=== PATIENT | female | born 1995 | race Two or more races ===

== ENCOUNTER 2020-06-24 13:27 | Emergency (ER) | payer SELFPAY ==
[2020-06-24 14:28] LABS: BLOOD UREA NITROGEN,BUN 8 mg/dL (7.0-18.0); CARBON DIOXIDE,CO2 23.5 mmol/L (21.0-32.0); CHLORIDE,CL 98 mmol/L (98-107); GLUCOSE RANDOM 138 mg/dL (74-106); POTASSIUM,K 3.6 mmol/L (3.5-5.1); SODIUM,NA 132 mmol/L (136-145)
[2020-06-24] MEDS ORDERED: cefTRIAXone 1 GM in Premix Bag 1 BAG IV ONE (14:29)
[2020-06-24] MEDS ORDERED: Sodium Chloride 0.9% 1,000 ML IV ONE (14:29)
--- NOTE | 2020-06-24 14:48 | EDM.PDOC ---
ED HPI GENERAL MEDICAL PROBLEM - General Chief Complaint: Abdominal Pain Stated Complaint: GALLBLADDER COMPLICATIONS Time Seen by Provider: 06/24/20 13:32 Source of Information: Reports: Patient History Limitations: Reports: No Limitations - History of Present Illness INITIAL COMMENTS - FREE TEXT/NARRATIVE: Presents reporting a 3-day history of right upper quadrant pain with in termittent nausea. She vomited once yesterday after eating oatmeal but has been eating and drinking fine since. She denies dysuria, diarrhea, ; she is not sexually active and not on control. Was seen at the [facility] on 06/23/2020. There, the radiologist appreciated some sludge within the gallbladder as well as a positive ultrasonic Larson sign on US. 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 WBCs were 13.7, sodium 132, potassium 3.9, alk phos 47, ALT 17, AST 13. Amylase 23, lipase 50. She was started on metronidazole 500 and Cipro 500 p.o. twice daily. The patient states she has taken 3 doses of each. She states she has been without nausea as long as she eats fresh fruits and vegetables and chicken broth. Her pain is now "bearly there". She states the only reason she came in is because she had a fever of 101 this morning although now it is 100.8 taking ibuprofen just prior to arrival. Patient states the only reason she came is because she was told that if she ran a fever she was come to the emergency room and get IV fluids and IV antibiotics. She request no other lab work will be done here however did except a repeat CBC at my urging.. Right Abdomen Pain Score (Numeric/FACES): 6 - Related Data Allergies Allergy/AdvReac Type Severity Reaction Status Date / Time No Known Allergies Allergy Verified 06/24/20 13:44 Home Meds: Home Meds Ciprofloxacin [Ciprofloxacin HCl] 500 mg PO DAILY 06/24/20 [History] metroNIDAZOLE [Flagyl] 500 mg PO BID 06/24/20 [History] Past Medical History - Past Health History Medical/Surgical History: Denies Medical/Surgical History Gastrointestinal History: Reports: Cholelithiasis - Infectious Disease History Infectious Disease History: Reports: None Social & Family History - Caffeine Use Caffeine Use: Reports: Coffee - Recreational Drug Use Recreational Drug Use: No ED ROS GENERAL - Review of Systems Review Of Systems: Comprehensive ROS is negative, except as noted in HPI. ED EXAM, GI/ABD - Physical Exam Exam: See Below Exam Limited By: No Limitations General Appearance: Alert, No Apparent Distress Ears: Normal External Exam Nose: Normal Inspection Throat/Mouth: Normal Inspection Head: Atraumatic, Normocephalic Neck: Normal Inspection Respiratory/Chest: No Respiratory Distress, Lungs Clear, Normal Breath Sounds Cardiovascular: Normal Peripheral Pulses, Regular Rate, Rhythm GI/Abdominal Exam: Normal Bowel Sounds, Soft, No Distention, Other (slight tenderness RUQ) Rectal (Female) Exam: Normal Exam Back Exam: Normal Inspection Extremities: Normal Inspection, Normal Range of Motion Neurological: Alert, Oriented Psychiatric: Normal Affect, Normal Mood Skin Exam: Warm, Dry, Intact, Normal Color, No Rash Lymphatic: No Adenopathy Course - Vital Signs Last Recorded V/S: Last Vital Signs Temp 38.2 C H 06/24/20 13:45 Pulse 88 06/24/20 14:57 Resp 16 06/24/20 14:57 BP 122/70 06/24/20 14:57 Pulse Ox 99 06/24/20 14:57 - Orders/Labs/Meds Labs: Laboratory Tests 06/24/20 06/24/20 06/24/20 Range/Units 13:49 13:49 15:24 WBC 11.84 H (4.0-11.0) K/uL RBC 3.99 L (4.30-5.90) M/uL Hgb 12.3 (12.0-16.0) g/dL Hct 37.9 (36.0-46.0) % MCV 95.0 (80.0-98.0) fL MCH 30.8 (27.0-32.0) pg MCHC 32.5 (31.0-37.0) g/dL RDW Std Deviation 46.9 (28.0-62.0) fl RDW Coeff of Junior 13 (11.0-15.0) % Plt Count 176 (150-400) K/uL MPV 10.60 (7.40-12.00) fL Neut % (Auto) 81.8 H (48.0-80.0) % Lymph % (Auto) 5.2 L (16.0-40.0) % Phelps % (Auto) 12.5 (0.0-15.0) % Eos % (Auto) 0.3 (0.0-7.0) % Baso % (Auto) 0.2 (0.0-1.5) % Neut # (Auto) 9.7 H (1.4-5.7) K/uL Lymph # (Auto) 0.6 (0.6-2.4) K/uL Phelps # (Auto) 1.5 H (0.0-0.8) K/uL Eos # (Auto) 0.0 (0.0-0.7) K/uL Baso # (Auto) 0.0 (0.0-0.1) K/uL Nucleated RBC % 0.0 /100WBC Nucleated RBCs # 0 K/uL Sodium 132 L (136-145) mmol/L Potassium 3.6 (3.5-5.1) mmol/L Chloride 98 (98-107) mmol/L Carbon Dioxide 23.5 (21.0-32.0) mmol/L BUN 8 (7.0-18.0) mg/dL Creatinine 1.0 (0.6-1.0) mg/dL Est Cr Clr Drug Dosing 73.00 mL/min Estimated GFR (MDRD) > 60.0 ml/min Glucose 138 H (74-106) mg/dL Calcium 9.2 (8.5-10.1) mg/dL Total Bilirubin 0.4 (0.2-1.0) mg/dL AST 17 (15-37) IU/L ALT 27 (14-63) IU/L Alkaline Phosphatase 63 (46-116) U/L Total Protein 7.6 (6.4-8.2) g/dL Albumin 3.0 L (3.4-5.0) g/dL Globulin 4.6 H (2.6-4.0) g/dL Albumin/Globulin Ratio 0.7 L (0.9-1.6) Urine HCG, Qual NEGATIVE (NEGATIVE) Meds: Medications Discontinued Medications Generic Name Dose Route Start Last Admin Trade Name Freq PRN Reason Stop Dose Admin Sodium Chloride 1,000 mls @ 999 mls/hr 06/24/20 14:29 06/24/20 14:35 Normal Saline IV 06/24/20 15:29 999 mls/hr STAT ONE Administration Ceftriaxone Sodium/Dextrose 1 50 mls @ 100 mls/hr 06/24/20 14:29 06/24/20 14:35 gm/ Premix IV 06/24/20 14:58 100 mls/hr ONETIME ONE Administration Departure - Departure Time of Disposition: 15:38 Disposition: Home, Self-Care 01 Condition: Good Clinical Impression: Cholecystitis - Discharge Information Referrals: PCP,None [Primary Care Provider] - Forms: ED Department Discharge Additional Instructions: The following information is given to patients seen in the emergency department who are being discharged to home. This information is to outline your options for follow-up care. We provide all patients seen in our emergency department with a follow-up referral. The need for follow-up, as well as the timing and circumstances, are variable depending upon the specifics of your emergency department visit. If you don't have a primary care physician on staff, we will provide you with a referral. We always advise you to contact your personal physician following an emergency department visit to inform them of the circumstance of the visit and for follow-up with them and/or the need for any referrals to a consulting specialist. The emergency department will also refer you to a specialist when appropriate. This referral assures that you have the opportunity for follow-up care with a specialist. All of these measure are taken in an effort to provide you with optimal care, which includes your follow-up. Under all circumstances we always encourage you to contact your private physician who remains a resource for coordinating your care. When calling for follow-up care, please make the office aware that this follow-up is from your recent emergency room visit. If for any reason you are refused follow-up, please contact the [facility] Emergency Department at and asked to speak to the emergency department charge nurse. [facility] - General Surgery Professional Building [address] [place] [address], [address] [place] [address] 1. Call [phone] on June 30 ask for Carmen. You will be scheduled for a HIDA scan. 2. Take your prescription for HIDA scan with you to your scan appointment. 3. Call [facility]. You will need an appointment to further evaluate your gallbladder. Note: you will have to have your HIDA scan before your appointment. 4. Take your antibiotics twice daily as you have been doing. 5. Follow a low-fat diet as you have been doing and drink plenty of fluids. 6. Return promptly for worsening right upper quadrant pain, fevers, vomiting and not keeping down oral fluids. Sepsis Event Note (ED) - Evaluation Sepsis Screening Result: Possible Sepsis Risk - Focused Exam Vital Signs: Vital Signs Temp Pulse Resp BP Pulse Ox 06/24/20 14:57 88 16 122/70 99 06/24/20 13:45 38.2 C H 100 16 117/69 96
== END 2020-06-24 15:58 | disposition home or self-care (01) ==
LOC: MW.ED 13:27
DX: K81.9 Cholecystitis, unspecified (principal)
CPT/HCPCS: 36415; 80053; 81025; 85025; 96365; 99284; J0696; J7030; 99283